=== PATIENT | male | born 1975 | race Asian ===

== ENCOUNTER 2020-02-24 08:50 | Emergency (ER) | payer OTHER ==
[~2020-02-24] VITALS: Ht 190.5 cm; Wt 84.8 kg
[2020-02-24 08:50] VITALS: TEMP 98.5
[2020-02-24 09:32] LABS: POTASSIUM 3.3 mmol/L (3.6-5.2); SODIUM 141 mmol/L (136-145)
[2020-02-24 09:41] LABS: PARTIAL THROMBOPLASTIN TIME 23.9 SECONDS (24.5-33.6)
[2020-02-24 09:42] LABS: PLATELET COUNT 144 K/uL (142-355)
[2020-02-24 11:19] VITALS: BP 136/89
== END 2020-02-24 11:19 | disposition home or self-care (01) ==
LOC: ED 08:56
PROVIDERS: Hospitalist
DX: R55 Syncope and collapse (principal); E87.6 Hypokalemia; R19.7 Diarrhea, unspecified
CPT/HCPCS: 80053; 80320; 82550; 83880; 84484; 85027; 85610; 85730; 93005; 96360; 96375; 99284; J1885; J2405